=== PATIENT | female | born 2000 | race Hispanic/Latino ===

== ENCOUNTER 2019-01-12 00:32 | Emergency (ER) | payer OTHER ==
[2019-01-12 00:48] VITALS: RESP 16; O2SAT 98
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
[2019-01-12 03:04] VITALS: BP 113/61; PULSE 74
[2019-01-12 03:13] VITALS: TEMP 98
== END 2019-01-12 03:10 | disposition home or self-care (01) ==
LOC: H.ER 00:32
DX: F10.129 Alcohol abuse with intoxication, unspecified (principal); F41.9 Anxiety disorder, unspecified